=== PATIENT | male | born 1980 | race Native Hawaiian/Other Pacific Islander ===

== ENCOUNTER 2024-09-22 22:45 | Emergency (ER) | payer MEDICAID, SELFPAY ==
[2024-09-22 22:48] VITALS: BMI 32.8
--- NOTE | 2024-09-22 23:05 | EKG_ITS ---
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
[2024-09-22 23:23] VITALS: BP 141/81; PULSE 86; RESP 18; TEMP 36.9; O2SAT 99
--- NOTE | 2024-09-22 23:29 | XR_ITS ---
Examination: PA chest single view TECHNIQUE: Upright PA chest single view Exam date and time: September 22, 2024, 11:52 PM. INDICATIONS: SOB today. FINDINGS: Normal heart size Mild prominence right tracheobronchial lymph node complex No pneumonia or pulmonary edema IMPRESSION: No pneumonia or pulmonary edema Recommend 3 month follow-up PA lateral chest to exclude right tracheobronchial lymphadenopathy
--- NOTE | 2024-09-22 23:31 | EDRME_ITS ---
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 also notes his legs spasms/twitch during sleep. Chief Complaint: Shortness of Breath/Dyspnea Vital signs: Vital Signs Temperature 98.5 F 09/22/24 23:23 Pulse Rate 86 09/22/24 23:23 Respiratory Rate 18 09/22/24 23:23 Blood Pressure 141/81 H 09/22/24 23:23 Pulse Oximetry (%) 99 09/22/24 23:23 Oxygen Delivery Method Room Air 09/22/24 23:23
[2024-09-23] LABS: Collection Type, Urine Clean Catch
[2024-09-23 00:02] LABS: Basophils # (Auto) 0.1 Thou/mm3 (0.0-0.2); Basophils % (Auto) 2 % (0-2.5); Eosinophils # (Auto) 0.5 Thou/mm3 (0.0-0.5); Eosinophils % (Auto) 6 % (0-10); Hematocrit 37.3 % (41.0-53.0); Hemoglobin 12.9 g/dL (13.5-16.0); Immature Granulocytes % (Auto) 0 % (0-0); Immature Granulocytes Auto 0.04 Thou/mm3 (0.00-0.00); Lymphocytes # (Auto) 2.9 Thou/mm3 (1.0-4.8); Lymphocytes % (Auto) 32 % (10-50); Mean Corpuscular HGB Conc 34.6 g/dl (31.0-37.0); Mean Corpuscular Hemoglobin 26.5 pg (25.0-35.0); Mean Corpuscular Volume 77 fL (80-100); Monocytes # (Auto) 0.7 Thou/mm3 (0.0-0.8); Monocytes % (Auto) 7 % (0-12); Neutrophils # (Auto) 4.9 Thou/mm3 (1.8-7.7); Neutrophils % (Auto) 54 % (37-80); Nucleated Red Blood Cell % 0 /100 WBC (0); Platelet Count 363 Thou/mm3 (140-440); Red Blood Count 4.86 Miln/mm3 (4.50-5.90); White Blood Count 9.2 Thou/mm3 (3.8-10.6)
[2024-09-23 00:14] LABS: Bilirubin,Urine Negative (Negative); Blood,Urine Negative (Negative); Clarity,Urine Clear (Clear/Hazy); Color,Urine Yellow (Lt Yel-Yel); Glucose, Urine 4+ (Negative); Ketones,Urine Negative (Negative); Leukocyte Esterase,Urine Negative (Negative); Nitrite,Urine Negative (Negative); Protein,Urine Trace (Neg - Trace); RBC,Urine 3 /hpf (0-3); Specific Gravity,Urine 1.041 (1.001-1.035); Squamous Epithelial Cell,Urine < 1 /hpf (0-5); Urobilinogen,Urine Negative mg/dL (0.0-1.0); WBC,Urine 1 /hpf (0-5)
[2024-09-23 00:25] LABS: Amphetamine/Methamp Scrn,U Negative (Negative); Barbiturate Screen,Urine Negative (Negative); Benzodiazepines Screen,Urine Negative (Negative); Benzoylecgonine Screen, Ur Negative (Negative); Fentanyl Screen,Urine Negative (Negative); Opiate Screen,Urine Negative (Negative); THC Screen,Urine Negative (Negative)
[2024-09-23 00:27] LABS: B-Type Natriuretic Peptide < 20 pg/mL (0-100)
[2024-09-23 00:28] LABS: Alanine Aminotransferase 22 U/L (10-49); Albumin, Serum 4.5 gm/dL (3.5-5.0); Albumin/Globulin Ratio 0.9 (1.2-2.2); Alkaline Phosphatase 99 U/L (46-116); Anion Gap 9 (7-16); Aspartate Amino Transferase 17 U/L (0-34); BUN/Creatinine Ratio 12 Ratio (12-20); Bilirubin,Total 0.3 mg/dL (0.3-1.2); Blood Urea Nitrogen 13 mg/dL (9-23); Calcium 9.6 mg/dL (8.3-10.6); Calcium (Corrected) 9.6 mg/dL (8.5-10.1); Carbon Dioxide 22.9 mMol/L (20.0-31.0); Chloride 101 mMol/L (98-107); Creatine Kinase 85 U/L (34-171); Creatinine (Component) 1.1 mg/dL (0.6-1.3); Estimated Creatinine Clearance 96.2 mL/min (>60); Glucose 341 mg/dL (74-106); Osmolality,Calculated 279 (275-295); Sodium 133 mMol/L (136-145); Total Protein 9.5 gm/dL (5.7-8.2); Troponin I < 0.002 ng/mL (0.0-0.045); eGFR > 60 See Note
[2024-09-23 02:45] VITALS: BP 122/89; PULSE 92; RESP 18; TEMP 37; O2SAT 100
--- NOTE | 2024-09-23 02:52 | PC.NURSE ---
pt appears in NAD.
[2024-09-23 04:01] VITALS: BP 147/101; PULSE 78; RESP 18; TEMP 37; O2SAT 100
[2024-09-23 06:00] VITALS: BP 122/90; O2SAT 100
--- NOTE | 2024-09-23 07:10 | PD.EDSOB ---
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 also notes his legs spasms/twitch during sleep. DR. NOONAN MAIN ED EVALUATION: 43 year old male presents to the Emergency Department with complaints of bilateral leg edema and weakness onset 3 months with associated shortness of breath. Patient denies any other symptoms at this time. PMHx: Valley Fever (diagnosed several years ago but still on Diflucan). Social Hx: No tobacco, alcohol, or substance use. Related Data Previous Rx's ?Medication ?Instructions ?Recorded dextromethorphan-guaifenesin 30 1 ea PO Q4HR PRN Cough #30 tabs 06/18/22 mg-600 mg tablet extended [id number] hr (Mucinex DM) metformin 500 mg tablet 500 mg PO BID #60 tabs 09/23/24 Allergies Allergy/AdvReac Type Severity Reaction Status Date / Time No Known Allergies Allergy Verified 09/22/24 22:47 Review of Systems Review of Systems Systems Reviewed: All systems reviewed, normal except as documented Narrative Review of Systems: GEN: No fever, no chills, no weight loss, + bilateral leg edema EYES: No discharge, no visual changes, no pain HEENT: No ear pain, no congestion, no sore throat PULM: + shortness of breath, no cough, no congestion CV: No chest pain, no dyspnea on exertion, no palpitations GI: No nausea, no vomiting, no diarrhea, no pain, no constipation : No frequency, no urgency and no dysuria MUSC/SKEL: No joint pain, no back pain SKIN: No rash PSYCH: No hallucinations, no depression HEME/LYMPH: No easy bleeding or bruising tendencies NEURO: + bilateral leg weakness, no headache Past Medical History Past Medical History CARDIAC: Negative Cardiac Disorders or Congestive Heart Failure RESPIRATORY: Negative Chronic Obstructive Pulmonary Disease (COPD) or Asthma GENITOURINARY: Negative Renal Disease ENDOCRINE: Negative Diabetes Mellitus Type 1 or Diabetes Mellitus Type 2 HEMATOLOGIC: Negative Sickle Cell Disease Social History SMOKING STATUS: Never smoker SUBSTANCE USE: does not use ALCOHOL: Never ED Exam Narrative Physical exam: GENERAL APPEARANCE: alert and oriented x 4, well-developed, well-nourished, no acute distress VITALS: All vitals were reviewed and the pulse ox is 99% on room air, which is normal according to my interpretation. HEENT: Normocephalic, atraumatic; pupils equal, round, reactive to light; EOMI; mucous membranes pink, moist; oropharynx clear NECK: Supple LUNGS: CTABL; no wheezes, no rales, no rhonchi HEART: Regular rate, regular rhythm; normal S1, S2; no murmurs ABDOMEN: non distended; normal BS; soft, no tenderness, no guarding, no rebound; no masses, no organomegaly, no hernia BACK: no CVA tenderness EXTREMITIES: atraumatic; no edema NEUROLOGIC: awake; alert and oriented x4; cranial nerves II-XII grossly intact; no focal sensory or motor deficits PSYCHIATRIC: appropriate mood and affect SKIN: warm, dry, normal color; no rashes Course Quality Measures none Orders Category Date Time Status EKG (ED ONLY) *Do not use* NOW Care 09/22/24 23:05 Completed EKG (ED Only) Stat Exams 09/22/24 23:05 Draft XR chest 1V portable Stat Exams 09/22/24 23:29 Completed A1C [Glycohemoglobin w (eAG)] Stat Lab 09/23/24 08:20 Completed B-Type Natriuretic Peptide Stat Lab 09/22/24 23:41 Completed CBC Stat Lab 09/22/24 23:41 Completed Comprehensive Metabolic Panel Stat Lab 09/22/24 23:41 Completed Creatine Kinase Stat Lab 09/22/24 23:41 Completed Drug Screen,Urine Stat Lab 09/22/24 23:43 Completed Troponin I Stat Lab 09/22/24 23:41 Completed Urinalysis Stat Lab 09/22/24 23:43 Completed Vital Signs Vital signs: Vital Signs Temperature 98.5 F 09/22/24 23:23 Pulse Rate 86 09/22/24 23:23 Respiratory Rate 18 09/22/24 23:23 Blood Pressure 141/81 H 09/22/24 23:23 Pulse Oximetry (%) 99 09/22/24 23:23 Oxygen Delivery Method Room Air 09/22/24 23:23 Procedures -ED EKG Interpretation #1: Date of EK09/23/24 Time of EK:17 Rate: 91 Interpretation: Interpreted by me Additional EKG comment: sinus rhythm, rate 91, incomplete right bundle branch block Shortness of Breath / Dyspnea MDM Narrative MDM Narrative:: I, Gillian Lawrence, am scribing for and in the presence of Dr. Noonan. Patient data External records reviewed:: [facility] previous records (Reviewed last ED visit dated 05/23/23, discharged with the following: Extensor tendon laceration, finger, open wound.) Clinical information provided by:: patient Social determinants that could affect healthcare access:: none Patient has the following chronic illnesses:: Valley Fever (diagnosed several years ago but still on Diflucan). How is presenting disease/condition affected by chronic disease/condition?: exacerbated by Evaluation data The following diagnostics were reviewed and interpreted by me:: lab results, radiology exam(s) and EKG tracing(s) Lab and/or radiology exams considered but not ordered:: none Interpretation Summary: Procedure(s): XR chest 1V portable Accession Number(s): [id number] cc: Audie Liu MD; Marcos Panda MD; Tejinder Calderon PA-C~ Examination: PA chest single view TECHNIQUE: Upright PA chest single view Exam date and time: September 22, 2024, 11:52 PM. INDICATIONS: SOB today. FINDINGS: Normal heart size Mild prominence right tracheobronchial lymph node complex No pneumonia or pulmonary edema IMPRESSION: No pneumonia or pulmonary edema Recommend 3 month follow-up PA lateral chest to exclude right tracheobronchial lymphadenopathy Dictated By: Marcos Panda MD Medications / Prescriptions Medications or Prescriptions considered but not ordered:: none Medication administrations:: see above if any Consultations Consultation(s) initiated? (list below): No Diagnosis Shortness of Breath Differential Diagnosis: acute exacerbation of chronic obstructive airways disease, congestive heart failure and community acquired pneumonia Most likely diagnosis given after review of the tests above:: Bilateral knee pain New onset type 2 diabetes mellitus Admission Indicated Admission indicated?: not indicated Admission Request Was there a request for admission?: No Disposition Plan Disposition Plan: Discharge Discharge Attestation Discharge Attestation: The patient and all family members were given an opportunity to ask questions and understood the discharge instructions. Discharge instructions specifically effects, indications for sooner follow up or return to the emergency department, and the expected course of current diagnosis. Patient condition: Stable Discharge Plan Plan Patient Disposition: HOME (Self Care) Prescriptions/Referrals Prescriptions/Med Rec: New metformin 500 mg tablet 500 mg PO BID Qty: 60 0RF No Action Mucinex DM 30-600 mg Tablet Extended Release 12 Hr 1 ea PO Q4HR PRN (Reason: Cough) Qty: 30 0RF Referrals: Audie Liu MD [Primary Care Provider] - In 1 week Problem List Clinical Impression: Bilateral knee pain, New onset type 2 diabetes mellitus Patient/Caregiver Discharge Instructions Education Materials: Diabetes Shopping Preparing Meals, Diabetes: Caring for Your Body, Diabetes and Kidney Disease, Diabetes Exercise Get Started, Diabetes: Living Your Life, Diabetes Exercise Plan, Diabetes Learn Serve Portion Size, Diabetes: Meal Planning, Diabetes Tracking Your Fitness ..., Diabetes Carbs Fats Protein, Do You Have Diabetes?, Diabetes: My Exam and Test Results Print Language: Lithuanian Stand Alone Forms: Anastasia Award Info., Patient Portal Info Letter
[2024-09-23 08:38] VITALS: BP 106/56; PULSE 78; RESP 18; TEMP 36.8; O2SAT 99
[2024-09-23 09:21] LABS: Glucose Estimated Average 240 mg/dL (80-131)
[2024-09-23 10:46] VITALS: BP 125/92; PULSE 79; RESP 18; TEMP 36.7; O2SAT 99
== END 2024-09-23 10:49 | disposition home or self-care (01) ==
PROVIDERS: Physician Assistant; Emergency Provider Emergency Medicine; PCP Family Medicine
DX: E11.9 Type 2 diabetes mellitus without complications (principal); M25.561 Pain in right knee; M25.562 Pain in left knee; I45.10 Unspecified right bundle-branch block; Z86.19 Personal history of other infectious and parasitic diseases; Z79.84 Long term (current) use of oral hypoglycemic drugs
CPT/HCPCS: 36415; 71045; 80053; 80307; 81001; 82550; 83036; 83880; 84484; 85025; 93005; 99283

== ENCOUNTER → 2025-01-26 | Outpatient (CLI) | payer MEDICAID, SELFPAY ==
--- NOTE | 2025-01-26 16:45 | XR_ITS ---
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 Sagittal T2-weighted images, TR 3500, TE 118 T1 weighted transverse sections, TR 688 T8.5, T2-weighted sagittal sections T1 weighted sagittal sections TR 621, TE 30 T2 axial sections, TR 4, 190, TE 84. Findings: Adequate alignment lumbar vertebral bodies No lumbar fracture Adequate marrow signal lumbar vertebral bodies Transitional L5 vertebral body L5-S1 no disc protrusion L4-L5 6 mm central lumbar disc bulge L3-L4 no disc protrusion L2-L3 no disc protrusion L1-L2 2 mm left paracentral disc bulge IMPRESSION: L4-L5 6 mm) broad disc bulge L1-L2 2 mm left paracentral disc bulge CT lumbar spine without contrast would best assess for osteolytic lesions characteristic for disseminated coccidiomycosis, as clinically warranted
== END | disposition home or self-care (01) ==
PROVIDERS: PCP Family Medicine; Referring Provider Family Medicine; Visit Provider Family Medicine
DX: M51.369 Other intervertebral disc degeneration, lumbar region without mention of lumbar back pain or lower extremity pain (principal)
CPT/HCPCS: 72148